=== PATIENT | female | born 1950 | race Caucasian/White ===

== ENCOUNTER 2021-10-15 04:14 | Day surgery (SDC) | payer OTHER, BC ==
[2021-10-12 11:19] VITALS: BMI 28.3
[2021-10-15] MEDS ORDERED: MIDAZOLAM HCL 2 MG/2 ML SINGLE DOSE VIAL ONE (07:52)
[2021-10-15 09:53] VITALS: BP 122/61; PULSE 69; TEMP 97.1
== END 2021-10-15 10:00 | disposition home or self-care (01) ==
LOC: JASU-SURG 04:14
PROVIDERS: ATTEND Urology
PROC: 0TF4XZZ Fragmentation in Left Kidney Pelvis, External Approach (ICD-10-PCS; principal; 2021-10-15 08:00)
DX: N20.0 Calculus of kidney (principal)